=== PATIENT | male | born 1995 | race African-American/Black ===

== ENCOUNTER 2017-08-18 19:34 | Emergency (ER) | payer OTHER, SELFPAY ==
[2017-08-18] MEDS ORDERED: Ketorolac Tromethamine 30 MG/ML VIAL ONE (21:12)
[2017-08-18] MEDS ORDERED: Lidocaine 1% w/Epinephrine 1:200K 30 ML VIAL ONE (21:12)
[2017-08-18] MEDS ORDERED: Metoclopramide HCl 10 MG/2 ML VIAL ONE ×2 (21:32→21:38)
[2017-08-18] MEDS ORDERED: diphenhydrAMINE 25 MG CAP ONE (21:32)
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
== END 2017-08-18 22:54 | disposition home or self-care (01) ==
LOC: ERS 19:34
DX: R51 Headache (principal); M54.2 Cervicalgia; Z79.899 Other long term (current) drug therapy; V49.40XA Driver injured in collision with unspecified motor vehicles in traffic accident, initial encounter
CPT/HCPCS: 72040; 96372; J1885; J2765

== ENCOUNTER 2019-02-18 19:48 | Emergency (ER) | payer OTHER, SELFPAY ==
--- NOTE | 2019-02-18 20:29 | RAD ---
Radiograph chest one view: HISTORY: 23-year-old male with chest pain FINDINGS: The visualized lung bassett are clear. The cardiomediastinal silhouette is normal. No pneumothorax. Th e lateral costophrenic angles are sharp. IMPRESSION: No acute cardiopulmonary findings.
[2019-02-18 20:39] LABS: #Basophils 0.1 thou/uL (0.0-0.2); #Eosinphils 0.1 thou/uL (0.0-0.7); #Lymphocytes 2.3 thou/uL (1.20-3.40); #Monocytes 0.5 thou/uL (0.11-0.59); #Neutrophils 2.6 thou/uL (1.40-6.50); %Basophils 1.3 % (0.0-1.0); %Eosinophils 1.3 % (0.0-10.0); %Lymphocytes 41.8 % (21.0-51.0); %Monocytes 8.4 % (0.0-10.0); %Neutrophils 47.1 % (42.0-75.0); Hemoglobin 14.4 g/dL (14.0-18.0); Mean Corpuscular HGB CONC 34.2 g/dL (32.0-36.0); Mean Corpuscular Hemoglobin 30.7 pg (27.0-31.0); Mean Corpuscular Volume 89.8 fL (78.0-98.0); Mean Platelet Volume 7.1 fL (7.4-10.4); Platelet Count 239 thou/uL (130-400); RBC Distribution Width 12.2 % (11.5-14.5); Red Blood Cell (RBC) Count 4.68 mill/uL (4.70-6.10); White Blood Cell (WBC) Count 5.5 thou/uL (4.8-10.8)
[2019-02-18 20:59] LABS: ALT (SGPT) 17 U/L (8-55); AST (SGOT) 32 U/L (5-34); Albumin 4.4 g/dL (3.5-5.0); Alkaline Phosphatase 51 U/L (40-150); Anion Gap 13 mmol/L (10-20); BUN (Urea Nitrogen) 16 mg/dL (8.9-20.6); Bilirubin, Total 0.5 mg/dL (0.2-1.2); CK (CPK) 704 U/L (30-200); Calc. Creatinine Clearance 0 mL/min (70-130); Calcium 9.5 mg/dL (7.8-10.44); Carbon Dioxide 26 mmol/L (22-29); Chloride 105 mmol/L (98-107); Estimated GFR-MDRD 59; Globulin 2.7 g/dL (2.4-3.5); Glucose 91 mg/dL (70-105); Potassium 3.8 mmol/L (3.5-5.1); Protein, Total 7.1 g/dL (6.0-8.3); Sodium 140 mmol/L (136-145)
[2019-02-18] MEDS ORDERED: Aspirin 325 MG TAB ONE (22:08)
--- NOTE | 2019-02-22 23:38 | EKG ---
Test Reason : Blood Pressure : / mmHG Vent. Rate : 067 BPM Atrial Rate : 067 BPM P-R Int : 194 ms QRS Dur : 092 ms QT Int : 368 ms P-R-T Axes : 057 066 029 degrees QTc Int : 388 ms Normal sinus rhythm with sinus arrhythmia Septal infarct , age undetermined No STEMI Abnormal ECG Confirmed by DEREK RENEE ([id number]), associate editor ASHISH OMER ([id number] on 02/22/2019 11:38:22 PM Referred By: Confirmed By:DEREK RENEE
== END 2019-02-19 00:32 | disposition home or self-care (01) ==
LOC: ERS 19:48
DX: R07.89 Other chest pain (principal); J45.909 Unspecified asthma, uncomplicated
CPT/HCPCS: 36415; 71045; 80053; 82550; 84484; 85025; 93005; 96360; 96361